=== PATIENT | female | born 1975 | race Hispanic/Latino ===

== ENCOUNTER → 2017-04-22 | Outpatient (CLI) | payer BC ==
--- NOTE | 2017-04-22 14:40 | Diagnostic Imaging Report ---
PROCEDURE:ABDOMINAL ULTRASOUND COMPARISON:None. INDICATIONS:ABDOMEN PAIN FINDINGS: Liver: 12.8 cm in length in the right midclavicular line. Increased hepatic parenchymal echogenicity. Main portal vein: 1.1 cm in caliber. Hepatopedal flow. Gallbladder: Unremarkable sonographic appearance without wall thickening, calculus, or pericholecystic fluid. Common Bile Duct: 0.2 cm in caliber. No echogenic filling defect. Sonographic Decker's sign: Reported as positive. Right kidney: 11.6 cm in length. No solid or cystic mass, echogenic calculi, or hydronephrosis. Normal renal cortical echogenicity. Left kidney: 12.5 cm in length. No solid or cystic mass, echogenic calculi, or hydronephrosis. Normal renal cortical echogenicity. Spleen: 8.8 cm in length. Uniform parenchymal echotexture. Pancreas: The visualized portions of the pancreas are normal. Inferior vena cava: Patent. Aorta: Non-aneurysmal. Ascites: None. CONCLUSION: Increased hepatic parenchymal echogenicity compatible with steatosis. Reported positive sonographic Decker sign is of doubtful clinical significance in the absence of cholelithiasis or additional sonographic findings of acute cholecystitis. Dictated by: Henry Slaughter M.D. on 04/22/2017 at 14:40 Electronically approved by: Henry Slaughter M.D. on 04/22/2017 at 14:40
--- NOTE | 2017-04-22 14:45 | Diagnostic Imaging Report ---
PROCEDURE:PELVIC ULTRASOUND COMPARISON:None. INDICATIONS:F/U OVARIAN CYST TECHNIQUE: Grayscale transverse and sagittal transabdominal images were obtained of the pelvis. FINDINGS: UTERUS: 8.4 x 4.3 x 5.1 cm. Uniform myometrial echotexture. No focal mass. ENDOMETRIUM: 0.7 cm in thickness. Uniform appearance. RIGHT OVARY: 3.6 x 4 x 3.4 cm. Contains a round, anechoic structure with posterior acoustic enhancement measuring 2.2 x 2.3 x 2.3 cm. LEFT OVARY: 3.1 x 2.1 x 1.9 cm. No focal mass. There is no free fluid within the pelvis. No adnexal masses. CONCLUSION: 2.3 cm right ovarian simple cyst or dominant follicle. Otherwise unremarkable transabdominal pelvic ultrasound. Dictated by: Henry Slaughter M.D. on 04/22/2017 at 14:45 Electronically approved by: Henry Slaughter M.D. on 04/22/2017 at 14:45
== END ==
LOC: US 11:14
PROVIDERS: ATTEND Family Medicine
DX: R10.9 Unspecified abdominal pain (principal)
CPT/HCPCS: 76700; 76856

== ENCOUNTER → 2017-05-28 | Outpatient (CLI) | payer BC ==
[~2017-05-28] MED LIST: SINCALIDE 3 MCG/VIAL INJ ONE
--- NOTE | 2017-05-28 16:43 | Diagnostic Imaging Report ---
Hepatobiliary Scan with Gallbladder Ejection Fraction Clinical information: 42 F with chronic abdominal pain Technique: Following intravenous administration of 6.6 millicuries of Tc-99m mebrofenin, dynamic images of the abdomen in the anterior projection were obtained through 30 minutes. Sincalide (CCK analog) 2.0 micrograms was administered intravenously over 30 minutes with additional imaging for determination of gallbladder ejection fraction. Discussion: Perfusion of the liver is normal. Extraction of tracer by the liver parenchyma is normal. Tracer appears promptly within the biliary tract. The gallbladder begins to fill by 6 minutes post injection of tracer and fills adequately. Tracer is seen in the small bowel during the sincalide infusion. The gallbladder ejection fraction with sincalide is 12% (normal greater than 40%). Impression: 1. Filling of the gallbladder excludes acute cystic duct obstruction/acute cholecystitis. 2. The decreased gallbladder ejection fraction of 12% supports the clinical diagnosis of chronic cholecystitis/gallbladder dyskinesia. Signed by: Dr. Joyce Wilson M.D. on 05/28/2017 4:39 PM
== END ==
LOC: NM 11:10
PROVIDERS: ATTEND Family Medicine
DX: R10.9 Unspecified abdominal pain (principal)
CPT/HCPCS: 78227; 81025; A9537; J2805

== ENCOUNTER 2024-05-25 01:09 | Emergency (ER) | payer BC ==
[~2024-05-25] VITALS: Ht 154.9 cm; Wt 97.5 kg
[2024-05-25 01:10] VITALS: TEMP 97.8
[2024-05-25 01:39] LABS: BASOPHILS # (AUTO) 0.1 (0.0-0.1); BASOPHILS % 0.7 % (0.0-1.0); EOSINOPHILS # (AUTO) 0.4 (0.0-0.4); HEMATOCRIT 39.8 % (34.2-44.1); HEMOGLOBIN 13.5 g/dL (12.0-16.0); LYMPHOCYTES # (AUTO) 2.9 (1.0-3.2); LYMPHOCYTES % 31.8 % (18.0-39.1); MEAN CORPUSCULAR HEMOGLOBIN 30.4 pg (28-32); MEAN CORPUSCULAR HGB CONC 33.9 g/dL (31-35); MEAN CORPUSCULAR VOLUME 89.6 fL (81-99); MONOCYTES # (AUTO) 0.8 (0.2-0.8); MONOCYTES % 8.9 % (4.4-11.3); NEUTROPHILS % 54.3 % (38.7-80.0); PLATELET COUNT 340 x10e3/uL (140-360); RED BLOOD COUNT 4.44 x10e6/uL (3.6-5.1); WHITE BLOOD COUNT 9.19 x10e3/uL (4.8-10.8)
[2024-05-25 01:43] LABS: BILIRUBIN,URINE NEGATIVE (NEGATIVE); CLARITY,URINE CLEAR (CLEAR); COLOR,URINE YELLOW (YELLOW); GLUCOSE, URINE NEGATIVE (NEGATIVE); KETONES,URINE NEGATIVE (NEGATIVE); LEUKOCYTE ESTERASE ,URINE NEGATIVE (NEGATIVE); NITRITE,URINE NEGATIVE (NEGATIVE); PH,URINE 5.5 (5 - 7); PROTEIN,URINE DIPSTICK NEGATIVE (NEGATIVE); URINE UROBILINOGEN 0.2 mg/dL (0.2 - 1)
[2024-05-25 01:44] LABS: PREGNANCY TEST, URINE NEGATIVE (NEGATIVE)
[2024-05-25] MEDS: SODIUM CHLORIDE 0.9% 1000ML 1,000 ML IV STA (01:55)
[2024-05-25] MEDS: KETOROLAC TROMETHAMINE 30 MG/ML VIAL IV STA (01:55)
[2024-05-25] MEDS: ONDANSETRON HCL INJ 2MG/ML 2ML 2 MG/ML VIAL IV STA (01:55)
[2024-05-25 02:02] LABS: RBC,URINE 0-5 /HPF (0-5)
[2024-05-25 02:04] LABS: BACTERIA,URINE MANY /HPF; EPITHELIAL CELLS,URINE MANY /LPF; RENAL EPITHELIAL CELLS,URINE FEW; WBC,URINE (MAN) 21-50 /HPF (0-5)
[2024-05-25 02:10] LABS: ALBUMIN 4.1 g/dL (3.5-5.0); ALBUMIN/GLOBULIN RATIO 1.2 (0.8-2.0); ANION GAP 13.9 mmol/L (8-16); BILIRUBIN,TOTAL 0.4 mg/dL (0.2-1.2); CALCIUM 9.5 mg/dL (8.4-10.2); CREATININE, SERUM 0.81 mg/dL (0.57-1.11); POTASSIUM 3.9 mmol/L (3.5-5.1); TOTAL PROTEIN 7.4 g/dL (6.5-8.1)
[2024-05-25] MEDS ORDERED: KETOROLAC TROME10 MG PO (02:45)
[2024-05-25] MEDS ORDERED: ONDANSETRON ODT4 MG PO (02:45)
[2024-05-25 02:50] VITALS: PULSE 73; RESP 16
[2024-05-25 02:58] VITALS: BP 103/77; PULSE 73; RESP 16; O2SAT 100
== END 2024-05-25 03:00 | disposition home or self-care (01) ==
LOC: ER 01:13
DX: R10.12 Left upper quadrant pain (principal); R31.9 Hematuria, unspecified; R11.2 Nausea with vomiting, unspecified; I10 Essential (primary) hypertension; R73.03 Prediabetes; K57.90 Diverticulosis of intestine, part unspecified, without perforation or abscess without bleeding; E66.9 Obesity, unspecified
CPT/HCPCS: 36415; 74176; 80053; 81001; 81025; 83690; 85025; 99284; J1885; J2405; J7030